=== PATIENT | male | born 1990 | race Caucasian/White ===

== ENCOUNTER 2017-05-04 16:38 | Emergency (ER) | payer OTHER ==
[~2017-05-04] VITALS: Ht 172.7 cm; Wt 81.0 kg
[~2017-05-04 16:38] MED LIST: BISA-57 PO; DIAZ-90 PO; FAMO-96 PO; HYDR-3498 PO; HYDR-762 PO; HYDR-906 PO; MAGN296S40 PO; NAPR-260 PO; ONDA4TAB35 PO; ONDA4TAB8 PO; PANT20TA2 PO; PRED20TA PO
[2017-05-04 16:47] VITALS: Ht 172.7 cm; Wt 81.0 kg
[2017-05-04] MEDS ORDERED: SOD CHLORIDE 0.9% 1,000 ML IV STA (17:54)
[2017-05-04 18:46] VITALS: TEMP 97.3
--- NOTE | 2017-05-04 18:59 | RADRPT ---
PROCEDURE: CT Brain without contrast. CLINICAL INDICATION: Syncope. Head trauma. TECHNIQUE: A CT of the brain was performed on a multidetector CT scanner utilizing axial sections from the skull base through the vertex without contrast. Images were reviewed on a high-resolution [employer] workstation. Exam CTDI = 44.95 mGy and the DLP = 720.23 mGy-cm. One or more of the following dose reduction techniques were used: Automated exposure control Adjustment of the mA and/or kV according to patient size. Use of iterative reconstruction technique. COMPARISON: Head CT 06/24/2014 FINDINGS: There is no evidence of intracranial hemorrhage, mass effect or midline shift. No abnormal intra-ax ial or extra-axial fluid collections are seen. The density of the brain is normal and the pearl/whit e matter differentiation is well preserved. The osseous structures are unremarkable. The paranasal sinuses are clear. IMPRESSION: 1. No intracranial hemorrhage, mass effect or midline shift. RPTAT: HHO .Essie Ricks MD, MD Date Time Electronically viewed and signed by .Essie Ricks MD, MD on 05/04/2017 18:58 .O/
[2017-05-04 19:07] LABS: BASOPHILS % 0.4 % (0.0-2.0); EOSINOPHILS # 0.2 10^3/ul (0.0-0.5); EOSINOPHILS % 1.4 % (0.0-7.0); HEMATOCRIT 40.5 % (42.0-52.0); HEMOGLOBIN 14.3 g/dl (14.0-18.0); LYMPHOCYTES # 1.5 10^3/ul (0.8-2.9); LYMPHOCYTES % 13.6 % (15.0-51.0); MEAN CORPUSCULAR HGB CONC 35.3 g/dl (32.0-37.0); MEAN CORPUSCULAR VOLUME 90.6 fl (82.0-101.0); MEAN PLATELET VOLUME 10.4 fl (7.4-10.4); MONOCYTE # 0.6 10^3/ul (0.3-0.9); MONOCYTES % 5.3 % (0.0-11.0); NEUTROPHIL # 8.8 10^3/ul (1.6-7.5); NEUTROPHILS % 78.9 % (39.0-77.0); PLATELET COUNT 213 10^3/UL (140-415); RED BLOOD COUNT 4.47 10^6/ul (4.70-6.10); RED CELL DISTRIBUTION WIDTH 12.6 % (11.5-14.5); WHITE BLOOD COUNT 11.2 10^3/ul (4.8-10.8)
[2017-05-04 19:20] LABS: ADD UMIC NO; UR ASCORBIC ACID NEGATIVE (NEGATIVE); UR BACTERIA FEW /HPF (NONE SEEN); UR BILIRUBIN (Dip) NEGATIVE (NEGATIVE); UR BLOOD (Dip) NEGATIVE (NEGATIVE); UR CLARITY SLIGHTLY CLOUDY (CLEAR); UR COLOR YELLOW (YELLOW); UR GLUCOSE (Dip) NEGATIVE (NEGATIVE); UR KETONES (Dip) 1+ mg/dL (NEGATIVE); UR LEUKOCYTE ESTERASE (Dip) NEGATIVE Leu/ul (NEGATIVE); UR MUCUS MODERATE /HPF (NONE SEEN); UR NITRITE (Dip) NEGATIVE (NEGATIVE); UR RBC 11 /HPF (0-5); UR TOTAL PROTEIN (Dip) NEGATIVE (NEGATIVE); UR UROBILINOGEN (Dip) 1+ mg/dL (NEGATIVE)
[2017-05-04 19:25] LABS: ANION GAP 14 (8-16); BLOOD UREA NITROGEN 9 mg/dl (7-20); CALCIUM 9.5 mg/dl (8.4-10.2); CARBON DIOXIDE 28 mmol/L (21-31); CHLORIDE 105 mmol/L (97-110); CREATININE 0.83 mg/dl (0.61-1.24); GLUCOSE 97 mg/dl (70-220); POTASSIUM 3.7 mmol/L (3.5-5.1); SODIUM 143 mmol/L (135-144)
[2017-05-04 19:26] LABS: ETHANOL < 10.0 mg/dl
--- NOTE | 2017-05-04 19:31 | ERD ---
ER Documentation Chief Complaint Date/Time DATE: 05/04/17 TIME: 18:00 Chief Complaint SYNCOPAL EPISODE AND FELL BACKWARD HIT HIS HEAD ON CONCRETE FLOOR , +KO HPI 26-year-old male ambulatory to the ED complaining of headache after syncopal episode. He was working on his car when he felt lightheaded and lost consciousness falling back and hitting the back of his head. Complains of moderate, nonradiating, occipital headache. Denies neck or back pain. No seizure activity. No intraoral injury. No visual changes, focal weakness or numbness. Denies abdominal pain, nausea vomiting. No chest pain, palpitations or shortness of breath. No fevers or chills. ROS All systems reviewed and are negative except as per history of present illness. Medications Home Meds Active Scripts Famotidine* (Pepcid*) 20 Mg Tablet, 20 MG PO BID for 14 Days, TAB Prov:FREDERIC BOYKIN DO 03/25/16 Hydrocodone/Acetaminophen ([place] 5-325 Tablet) 1 Each Tablet, 1 TAB PO Q6H Y for PAIN, #10 TAB Prov:FREDERIC BOYKIN DO 03/25/16 Ondansetron Hcl* (Zofran*) 4 Mg Tablet, 4 MG PO Q8H Y for NAUSEA AND/OR VOMITING , #10 TAB Prov:FREDERIC BOYKIN DO 03/25/16 Ondansetron Hcl* (Zofran* ODT) 4 mg -ODT Tab.disper, 4 MG PO Q6 Y for NAUSEA AND /OR VOMITING, #10 TAB Prov:ABY ARIZMENDI PA-C 12/11/15 Pantoprazole* (Protonix*) 20 Mg Tablet.dr, 20 MG PO DAILY, #20 TAB Prov:ABY ARIZMENDI PA-C 12/11/15 Naproxen* (Naprosyn*) 500 Mg Tablet, 500 MG PO BID Y for PAIN AND/OR INFLAMMATION, #30 TAB Prov:GRACIELA LOTT PA-C 10/05/15 Hydrocodone Bit-Acetaminophen* (Grant*) 5-325 Mg Tab, 1 TAB PO Q6 Y for PAIN, # 7 TAB Prov:GRACIELA LOTT PA-C 10/05/15 Magnesium Citrate* (Magnesium Citrate*) 296 Ml Solution, 296 ML PO ONCE Y for CONSTIPATION, #3 BOTTLE Prov:ARISTEO PRESTON MD 09/16/15 Bisacodyl* (Dulcolax*) 5 Mg Tablet.dr, 10 MG PO DAILY Y for CONSTIPATION, #15 TAB Prov:ARISTEO PRESTON MD 09/16/15 Diazepam* (Valium*) 5 Mg Tablet, 5 MG PO Q8, #10 TAB Prov:CASSIE DUARTE MD 09/10/15 Hydrocodone Bit-Acetaminophen* (Grant*) 10-325 Mg Tablet, 1 TAB PO Q8 Y for PAIN , #10 TAB Prov:CASSIE DUARTE MD 09/10/15 Prednisone* (Prednisone*) 20 Mg Tab, 60 MG PO DAILY for 5 Days, TAB Prov:CASSIE DUARTE MD 09/10/15 Allergies Allergies: Coded Allergies: No Known Drug Allergy (Verified Allergy, Mild, 09/12/15) PMhx/Soc Reviewed in chart. As per HPI History of Surgery: No Anesthesia Reaction: No Hx Neurological Disorder: Yes (Headaches) Hx Respiratory Disorders: No Hx Cardiac Disorders: No Hx Psychiatric Problems: No Hx Miscellaneous Medical Probl: Yes (Recurrent abdominal pain with nausea and vomiting) Hx Alcohol Use: No Hx Substance Use: No Hx Tobacco Use: No Smoking Status: Unknown if ever smoked FmHx No syncope or sudden cardiac Physical Exam Vitals Vital Signs Date Time Temp Pulse Resp B/P Pulse Ox O2 Delivery O2 Flow Rate FiO2 05/04/17 19:47 73 18 132/70 Room Air 05/04/17 18:46 97.3 66 17 125/70 100 Room Air 05/04/17 16:47 98.1 79 18 123/68 98 Physical Exam Const: Alert, anxious, no acute distress Head: Atraumatic Eyes: Normal Conjunctiva ENT: Normal External Ears, Nose and Mouth. No intraoral injury Neck: Full range of motion. No midline bony tenderness or paraspinal muscle spasm. Resp: Clear to auscultation bilaterally Cardio: Regular rate and rhythm, no murmurs, gallops or rubs. Abd: Soft, non tender, non distended. Normal bowel sounds no masses or abnormal pulsations. Skin: No petechiae or rashes Back: No midline or flank tenderness Ext: No cyanosis, or edema. No calf tenderness or swelling. Neur: Awake and alert. Cranial nerves II through XII are grossly intact. Motor and sensory equal bilaterally. No dysdiadochokinesis. No focal deficit observed. Psych: Operative. Patient appears anxious but not depressed. Result Diagram: 05/04/17 1800 05/04/17 1800 Results 24 hrs Laboratory Tests Test 05/04/17 18:00 White Blood Count 11.210^3/ul Red Blood Count 4.4710^6/ul Hemoglobin 14.3g/dl Hematocrit 40.5% Mean Corpuscular Volume 90.6fl Mean Corpuscular Hemoglobin 32.0pg Mean Corpuscular Hemoglobin Concent 35.3g/dl Red Cell Distribution Width 12.6% Platelet Count 38140^3/UL Mean Platelet Volume 10.4fl Neutrophils % 78.9% Lymphocytes % 13.6% Monocytes % 5.3% Eosinophils % 1.4% Basophils % 0.4% Nucleated Red Blood Cells % 0.0/100WBC Neutrophils # 8.810^3/ul Lymphocytes # 1.510^3/ul Monocytes # 0.610^3/ul Eosinophils # 0.210^3/ul Basophils # 0.010^3/ul Nucleated Red Blood Cells # 0.010^3/ul Urine Color YELLOW Urine Clarity SLIGHTLY CLOUDY Urine pH 8.0 Urine Specific [place] 1.020 Urine Ketones 1+mg/dL Urine Nitrite NEGATIVEmg/dL Urine Bilirubin NEGATIVEmg/dL Urine Urobilinogen 1+mg/dL Urine Leukocyte Esterase NEGATIVELeu/ul Urine Microscopic RBC 11/HPF Urine Microscopic WBC 1/HPF Urine Bacteria FEW/HPF Urine Mucus MODERATE/HPF Urine Hemoglobin NEGATIVEmg/dL Urine Glucose NEGATIVEmg/dL Urine Total Protein NEGATIVEmg/dl Sodium Level 143mmol/L Potassium Level 3.7mmol/L Chloride Level 105mmol/L Carbon Dioxide Level 28mmol/L Anion Gap 14 Blood Urea Nitrogen 9mg/dl Creatinine 0.83mg/dl Glucose Level 97mg/dl Calcium Level 9.5mg/dl Urine Opiates Screen Negative Urine Barbiturates Negative Urine Amphetamines Screen Negative Urine Benzodiazepines Screen Negative Urine Cocaine Screen Negative Urine Cannabinoids Positive Ethyl Alcohol Level < 10.0mg/dl Current Medications Medications (Trade) Dose Ordered Sig/Nicole Route PRN Reason Start Time Stop Time Status Last Admin Dose Admin Sodium Chloride (NS) 1,000 ml @ 1,000 mls/hr Q1H STAT IV 05/04/17 17:54 05/04/17 18:53 DC 05/04/17 18:01 Ketorolac Tromethamine (Toradol) 15 mg ONCE STAT IV 05/04/17 19:49 05/04/17 19:50 DC 05/04/17 20:18 EKG: Time: 19:24. Sinus rhythm. Ventricular rate 77, normal SC and QRS intervals. No acute ST segment elevation or depression. No axis deviation or ectopy. EP Impression: Normal EKG IMAGING: PROCEDURE: CT Brain without contrast. CLINICAL INDICATION: Syncope. Head trauma. TECHNIQUE: A CT of the brain was performed on a multidetector CT scanner utilizing axial sections from the skull base through the vertex without contrast. Images were reviewed on a high-resolution [employer] workstation. Exam CTDI = 44.95 mGy and the DLP = 720.23 mGy-cm. One or more of the following dose reduction techniques were used: Automated exposure control Adjustment of the mA and/or kV according to patient size. Use of iterative reconstruction technique. COMPARISON: Head CT 06/24/2014 FINDINGS: There is no evidence of intracranial hemorrhage, mass effect or midline shift. No abnormal intra-axial or extra-axial fluid collections are seen. The density of the brain is normal and the pearl/white matter differentiation is well preserved. The osseous structures are unremarkable. The paranasal sinuses are clear. IMPRESSION: 1. No intracranial hemorrhage, mass effect or midline shift. RPTAT: HHO .Essie Ricks MD, MD Date Time Electronically viewed and signed by .Essie Ricks MD, on 05/04/2017 18:58 .O/ Procedures/MDM DOCUMENTS REVIEWED: ED nurse, multiple prior ED visits and imaging studies for his complaints including abdominal pain and headache MEDICAL DECISION MAKIN-year-old male ambulatory to the ED complaining of headache after syncopal episode. He was working on his car when he felt lightheaded and lost consciousness falling back and hitting the back of his head. EKG reveals no evidence of cardiac dysrhythmia. No murmur signs of obstructive cardiomyopathy. No electrolyte abnormalities or hyponatremia. There is no evidence of seizure., Exam is benign without tenderness, rebound, guarding or signs of an acute intra-abdominal process including but not limited to abdominal aortic aneurysm. Post head injury with loss of consciousness and CT was performed to rule out subdural/epidural hematoma, mass or hydrocephalus and is negative. Pulmonary embolism is unlikely. Probable vasovagal syncope exacerbated by dehydration. Improved with intravenous hydration. Stable for discharge of precautionary instructions and outpatient follow-up as counseled. Counseled patient regarding diagnostic workup, diagnosis and need for followup. Understands to return to ED if symptoms recur, worsen or any other concerns. Departure Diagnosis: Primary Impression: Syncope Syncope type: unspecified Qualified Code: R55 - Syncope, unspecified syncope type Condition: Stable (Improved) ELADIA MCCANN MD May 04, 2017 19:31
[2017-05-04 19:45] LABS: COCAINE Negative (NEGATIVE)
[2017-05-04 19:46] LABS: BARBITURATES Negative (NEGATIVE); BENZODIAZEPINES Negative (NEGATIVE); CANNABINOIDS Positive (NEGATIVE); OPIATES Negative (NEGATIVE)
[2017-05-04 19:47] VITALS: BP 132/70; PULSE 73; RESP 18
[2017-05-04] MEDS ORDERED: KETOROLAC 15 MG INJ IV STA (19:49)
== END 2017-05-04 20:22 | disposition home or self-care (01) ==
LOC: E/R 16:38
DX: R55 Syncope and collapse (principal)
CPT/HCPCS: 70450; 80048; 80306; 80307; 81001; 85025; 96374; J1885; J7030; Z7502; 81003

== ENCOUNTER 2017-09-27 16:19 | Observation (INO) | END 2017-09-28 12:45 | disposition home or self-care (01) ==

== ENCOUNTER 2017-09-28 20:38 | Emergency (ER) | END 2017-09-29 06:40 | disposition home or self-care (01) ==

== ENCOUNTER 2017-10-12 13:54 | Emergency (ER) | END 2017-10-12 17:31 | disposition home or self-care (01) ==

== ENCOUNTER 2017-11-02 00:41 | Emergency (ER) | END 2017-11-02 04:46 | disposition home or self-care (01) ==

== ENCOUNTER 2017-12-21 16:28 | Emergency (ER) | END 2017-12-21 18:00 | disposition home or self-care (01) ==

== ENCOUNTER 2017-12-23 00:26 | Emergency (ER) | END 2017-12-23 06:04 | disposition home or self-care (01) ==

== ENCOUNTER 2017-12-23 12:26 | Emergency (ER) | END 2017-12-23 22:58 | disposition short-term general hospital (02) ==

== ENCOUNTER 2017-12-31 09:50 | Emergency (ER) | END 2017-12-31 13:14 | disposition home or self-care (01) ==

== ENCOUNTER 2018-02-01 09:24 | Emergency (ER) | END 2018-02-01 11:39 | disposition home or self-care (01) ==

== ENCOUNTER 2018-02-28 03:11 | Emergency (ER) | END 2018-02-28 07:44 | disposition home or self-care (01) ==

== ENCOUNTER 2018-03-03 08:48 | Emergency (ER) | END 2018-03-03 11:31 | disposition home or self-care (01) ==

== ENCOUNTER 2018-03-09 00:09 | Emergency (ER) | END 2018-03-09 03:15 | disposition home or self-care (01) ==

== ENCOUNTER 2018-03-12 00:41 | Emergency (ER) | END 2018-03-12 03:24 | disposition home or self-care (01) ==

== ENCOUNTER 2018-03-19 08:21 | Emergency (ER) | END 2018-03-19 10:26 | disposition home or self-care (01) ==

== ENCOUNTER 2018-03-19 12:14 | Emergency (ER) | END 2018-03-19 15:01 | disposition home or self-care (01) ==

== ENCOUNTER 2018-04-12 07:49 | Emergency (ER) | END 2018-04-12 10:56 | disposition home or self-care (01) ==

== ENCOUNTER 2018-04-14 06:59 | Emergency (ER) | END 2018-04-14 09:42 | disposition home or self-care (01) ==

== ENCOUNTER 2018-04-19 14:48 | Emergency (ER) | END 2018-04-19 18:15 | disposition left against medical advice (07) ==

== ENCOUNTER 2018-04-19 19:53 | Emergency (ER) | END 2018-04-20 01:38 | disposition home or self-care (01) ==

== ENCOUNTER 2018-05-10 20:21 | Emergency (ER) | END 2018-05-11 04:30 | disposition home or self-care (01) ==

== ENCOUNTER 2018-06-21 16:39 | Emergency (ER) | END 2018-06-21 18:50 | disposition home or self-care (01) ==

== ENCOUNTER 2018-06-26 13:19 | Emergency (ER) | END 2018-06-26 14:45 | disposition home or self-care (01) ==

== ENCOUNTER 2018-07-11 05:07 | Emergency (ER) | END 2018-07-11 08:45 | disposition home or self-care (01) ==

== ENCOUNTER 2018-09-15 10:14 | Emergency (ER) | payer SELFPAY ==
[~2018-09-15] VITALS: Ht 170.2 cm; Wt 80.1 kg
[~2018-09-15 10:14] MED LIST changes: -BISA-57 PO; -DIAZ-90 PO; +DICY10CA40 PO; -FAMO-96 PO; -HYDR-3498 PO; +HYDR-3980 PO; -HYDR-762 PO; -HYDR-906 PO; +IBUP-1542 PO; -MAGN296S40 PO; -NAPR-260 PO; -ONDA4TAB35 PO; -ONDA4TAB8 PO; -PANT20TA2 PO; -PRED20TA PO; +ZOF8 PO
[2018-09-15 10:35] VITALS: RESP 18; Ht 170.2 cm; Wt 80.1 kg
[2018-09-15] MEDS ORDERED: HYDROCODONE/APAP (10/325) TAB PO ONE (11:30)
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
[2018-09-15] MEDS ORDERED: IBUP-1542 PO (13:53)
[2018-09-15 14:07] VITALS: BP 129/69; PULSE 71
== END 2018-09-15 14:10 | disposition home or self-care (01) ==
LOC: FTE 10:14
DX: S16.1XXA Strain of muscle, fascia and tendon at neck level, initial encounter (principal); S20.219A Contusion of unspecified front wall of thorax, initial encounter; S69.91XA Unspecified injury of right wrist, hand and finger(s), initial encounter; S39.92XA Unspecified injury of lower back, initial encounter; F17.210 Nicotine dependence, cigarettes, uncomplicated; V13.0XXA Pedal cycle driver injured in collision with car, pick-up truck or van in nontraffic accident, initial encounter
CPT/HCPCS: 71110; 72040; 72100; 73562

== ENCOUNTER 2018-09-26 00:29 | Emergency (ER) | payer SELFPAY ==
[~2018-09-26] VITALS: Ht 170.2 cm; Wt 79.6 kg
[2018-09-26 00:32] VITALS: Ht 170.2 cm; Wt 79.6 kg
--- NOTE | 2018-09-26 03:33 | ERD ---
ER Documentation Chief Complaint Chief Complaint c/o frontal headache +pressure to eyes. +nausea since 2pm yesterday HPI There is a 28-year-old male presents to emergency department with complaints of headache. History of migraine. Denies the worst headache of his life, head injury, loss of consciousness, dizziness, neck pain, neck stiffness, throat pain, difficulty swallowing, difficulty breathing lying flat, shoulder pain, chest pain, back pain, abdominal pain, nausea, vomiting, constipation, diarrhea, urinary symptoms, loss of bowel and bladder control, trauma, injury, falls, difficulty walking due to pain, numbness or tingling sensation, calf pain, recent travel, recent major surgery in the last 3 weeks, calf pain, recent long travel, recent exposure to any illness, recent antibiotic use in the last 3 months, fever, chills, seizures. Past medical history: Surgical history: Social: Denies smoking, use of alcoholic beverages, use of illegal drugs. ROS All systems reviewed and are negative except as per history of present illness. Medications Home Meds Active Scripts Metoclopramide* (Reglan*) 10 Mg Tablet, 10 MG PO Q6 PRN for NAUSEA AND/OR VOMITING, #20 TAB Prov:PASILABAN,KLAR F 09/26/18 Ibuprofen* (Motrin*) 800 Mg Tab, 800 MG PO Q6H PRN for PAIN AND OR ELEVATED TEMP, #30 TAB Prov:PASILABAN,KLAR F 09/26/18 Diphenhydramine Hcl* (Benadryl*) 25 Mg Cap, 25 MG PO Q6 PRN for ITCHING/RASH, #30 TAB Prov:PASILABAN,KLAR F 09/26/18 Meclizine Hcl* (Antivert*) 12.5 Mg Tab, 12.5 MG PO Q6H PRN for DIZZINESS, #20 TAB Prov:PASILABAN,KLAR F 09/26/18 Ibuprofen* (Motrin*) 600 Mg Tab, 600 MG PO Q6, #30 TAB Prov:LATRICIA MCCLAIN PA-C 09/15/18 Ondansetron Hcl* (Zofran*) 8 Mg Tab, 8 MG PO Q6H PRN for NAUSEA AND OR VOMITING, #20 TAB Prov:NAYA SHOEMAKER MD 07/11/18 Dicyclomine HCl (Dicyclomine HCl) 10 Mg Capsule, 10 MG PO TID PRN for ABDOMINAL CRAMPING, #20 CAP Prov:NAYA SHOEMAKER MD 07/11/18 Reported Medications Hydrocodone/Acetaminophen ([place] 10-325 Tablet) 1 Each Tablet, 1 EACH PO Q6 PRN for SEVERE PAIN LEVEL 7-10, TAB 03/03/18 Ibuprofen* (Ibuprofen*) 600 Mg Tablet, 600 MG PO Q6H PRN for PAIN AND/OR INFLAMMATION, TAB 03/03/18 Allergies Allergies: Coded Allergies: No Known Drug Allergy (Verified Allergy, Mild, 09/15/18) PMhx/Soc History of Surgery: No Anesthesia Reaction: No Hx Neurological Disorder: Yes (Herniated Disc) Hx Respiratory Disorders: No Hx Cardiac Disorders: No Hx Psychiatric Problems: No Hx Miscellaneous Medical Probl: No Hx Alcohol Use: Yes (social) Hx Substance Use: Yes (Marijuana) Hx Tobacco Use: Yes Smoking Status: Current every day smoker Physical Exam Vitals Physical Exam Const: No acute distress Head: Atraumatic Eyes: Normal Conjunctiva. There is no visual field loss. There is mild sensitivity to light. ENT: Normal External Ears, Nose and Mouth. Neck: Full range of motion. No meningismus. Resp: Clear to auscultation bilaterally Cardio: Regular rate and rhythm, no murmurs Abd: Soft, non tender, non distended. Normal bowel sounds Skin: No petechiae or rashes Back: No midline or flank tenderness Ext: No cyanosis, or edema Neur: Awake and alert. No obvious facial droop. Romberg test is negative. No neurological deficits. Ambulatory with steady gait. Psych: Normal Mood and Affect Results 24 hrs Current Medications Medications Dose Sig/Nicole Start Time Status Last (Trade) Ordered Route PRN Stop Time Admin Dose Reason Admin Sodium 1,000 ml @ Q1H ONCE 09/26/18 DC 09/26/18 Chloride 1,000 mls/hr IV 04:00 09/26/18 04:41 04:59 10 mg ONCE ONCE 09/26/18 DC 09/26/18 Metoclopramid IV 04:00 09/26/18 04:41 e HCl 04:01 (Reglan) 25 mg ONCE ONCE 09/26/18 DC 09/26/18 Diphenhydrami IV 04:00 09/26/18 04:41 ne HCl 04:01 (Benadryl) Meclizine 25 mg ONCE ONCE 09/26/18 DC 09/26/18 HCl PO 05:00 09/26/18 05:03 (Antivert) 05:01 Ondansetron 4 mg ONCE STAT 09/26/18 DC 09/26/18 HCl (Zofran ODT 04:55 09/26/18 05:02 Odt) 04:56 Lorazepam 1 mg ONCE ONCE 09/26/18 DC 09/26/18 (Ativan) IV 05:00 09/26/18 05:02 05:01 Procedures/MDM Diagnostic tests: Clinical exam. Treatment: Saline lock. Normal saline IV bolus. Benadryl IV. Reglan IV. Antivert. Ativan. Re-evaluation: Romberg test is negative. No neurological deficit. Patient stated that he feels much better at this time and that he is ready to go home. Differential diagnosis I have low suspicion for subarachnoid hemorrhage, stroke, sepsis, meningitis, epidural hematoma, subdural hematoma. Final diagnosis: Headache. Migraine. Prescription: Motrin. Reglan. Benadryl. Antivert. Follow-up with PCP in the next 24-48 hours. PCP to refer patient to neurologist if symptoms persist. Come back here in the emergency department for any new symptoms or any worsening symptoms. All questions and concerns were answered. Patient and family members verbalized understanding and agreed with plan of care. Hemodynamically stable on discharge. Departure Diagnosis: Primary Impression: Headache Additional Impression: Migraine Condition: Stable Additional Instructions: Follow-up with PCP in the next 24-48 hours. PCP to refer patient to neurologist if symptoms persist. Come back here in the emergency department for any new symptoms or any worsening symptoms. ASHA LÓPEZ Sep 26, 2018 03:33
[2018-09-26] MEDS ORDERED: DIPHENHYDRAMINE 50 MG INJ IV ONE (04:00)
[2018-09-26] MEDS ORDERED: METOCLOPRAMIDE 10 MG INJ IV ONE (04:00)
[2018-09-26] MEDS ORDERED: SOD CHLORIDE 0.9% 1,000 ML IV ONE (04:00)
[2018-09-26] MEDS ORDERED: ONDANSETRON (ODT) 4 MG TAB ODT STA (04:55)
[2018-09-26] MEDS ORDERED: LORAZEPAM 2 MG INJ IV ONE (05:00)
[2018-09-26] MEDS ORDERED: MECLIZINE 12.5 MG TAB PO ONE (05:00)
[2018-09-26] MEDS ORDERED: IBUP800T48 PO (05:51)
[2018-09-26] MEDS ORDERED: BEN25 PO (05:51)
[2018-09-26] MEDS ORDERED: MECL12.574 PO (05:51)
[2018-09-26] MEDS ORDERED: METO10TA92 PO (05:52)
[2018-09-26 06:17] VITALS: BP 129/78; PULSE 80; RESP 16
== END 2018-09-26 06:18 | disposition home or self-care (01) ==
LOC: FTE 00:29
DX: G43.909 Migraine, unspecified, not intractable, without status migrainosus (principal); F17.210 Nicotine dependence, cigarettes, uncomplicated
CPT/HCPCS: 96374; 96375; 99284; J1200; J2060; J2765; J7030

== ENCOUNTER 2018-11-25 17:44 | Emergency (ER) | payer MEDICAID ==
[~2018-11-25] VITALS: Ht 170.2 cm; Wt 77.8 kg
[~2018-11-25 17:44] MED LIST changes: +BEN25 PO; +IBUP800T48 PO; +MECL12.574 PO; +METO10TA92 PO
[2018-11-25 17:52] VITALS: Ht 170.2 cm; Wt 77.8 kg
[2018-11-25] MEDS ORDERED: IBUPROFEN 800 MG TAB PO ONE (18:30)
[2018-11-25] MEDS ORDERED: LORAZEPAM 1 MG TAB PO ONE (18:30)
[2018-11-25] MEDS ORDERED: IBUP-1542 PO (19:04)
--- NOTE | 2018-11-25 19:12 | ERD ---
ER Documentation Chief Complaint Chief Complaint mid chest pain started at work today; vomited at work HPI Patient is a 28-year-old male with no medical problems presents with chest pain. The symptoms started yesterday. He was vomiting. He feels pressure in his chest. The pain has been constant. He has had no treatment as of yet. He reports a cough as well. Upon review of old medical records the patient has multiple visits for various complaints. Review of the emergency department information exchange system shows visits to 3 separate emergency departments for a total of 29 visits over the past 1 year. ROS All systems reviewed and are negative except as per history of present illness. Medications Home Meds Active Scripts Ibuprofen* (Motrin*) 600 Mg Tab, 600 MG PO Q6H PRN for PAIN AND OR ELEVATED TEMP, #30 TAB Prov:KELLY POWELL MD 11/25/18 Metoclopramide* (Reglan*) 10 Mg Tablet, 10 MG PO Q6 PRN for NAUSEA AND/OR VOMITING, #20 TAB Prov:PASILAASHA STRICKLAND 09/26/18 Ibuprofen* (Motrin*) 800 Mg Tab, 800 MG PO Q6H PRN for PAIN AND OR ELEVATED TEMP, #30 TAB Prov:PASILAASHA STRICKLAND F 09/26/18 Diphenhydramine Hcl* (Benadryl*) 25 Mg Cap, 25 MG PO Q6 PRN for ITCHING/RASH, #30 TAB Prov:PASILAASHA STRICKLAND F 09/26/18 Meclizine Hcl* (Antivert*) 12.5 Mg Tab, 12.5 MG PO Q6H PRN for DIZZINESS, #20 TAB Prov:PASASHA PEARCE F 09/26/18 Ibuprofen* (Motrin*) 600 Mg Tab, 600 MG PO Q6, #30 TAB Prov:LATRICIA MCCLAIN PA-C 09/15/18 Ondansetron Hcl* (Zofran*) 8 Mg Tab, 8 MG PO Q6H PRN for NAUSEA AND OR VOMITING, #20 TAB Prov:NAYA SHOEMAKER MD 07/11/18 Dicyclomine HCl (Dicyclomine HCl) 10 Mg Capsule, 10 MG PO TID PRN for ABDOMINAL CRAMPING, #20 CAP Prov:NAYA SHOEMAKER MD 07/11/18 Reported Medications Hydrocodone/Acetaminophen ([place] 10-325 Tablet) 1 Each Tablet, 1 EACH PO Q6 PRN for SEVERE PAIN LEVEL 7-10, TAB 03/03/18 Ibuprofen* (Ibuprofen*) 600 Mg Tablet, 600 MG PO Q6H PRN for PAIN AND/OR INFLAMMATION, TAB 03/03/18 Allergies Allergies: Coded Allergies: No Known Drug Allergy (Verified Allergy, Mild, 09/15/18) PMhx/Soc History of Surgery: No Anesthesia Reaction: No Hx Neurological Disorder: Yes (Herniated Disc) Hx Respiratory Disorders: No Hx Cardiac Disorders: No Hx Psychiatric Problems: No Hx Miscellaneous Medical Probl: No Hx Alcohol Use: Yes (social) Hx Substance Use: Yes (Marijuana) Hx Tobacco Use: Yes Smoking Status: Current every day smoker FmHx Family History: diabetes Physical Exam Vitals Vital Signs Date Temp Pulse Resp B/P (MAP) Pulse Ox O2 O2 Flow FiO2 Time Delivery Rate 11/25/18 98.2 100 20 144/63 100 17:52 (90) Physical Exam Const: Mild distress Head: Atraumatic Eyes: Normal Conjunctiva ENT: Normal External Ears, Nose and Mouth. Neck: Full range of motion. No meningismus. Resp: Clear to auscultation bilaterally Cardio: Tachycardic rate without murmur Abd: Soft, non tender, non distended. Normal bowel sounds Skin: No petechiae or rashes Back: No midline or flank tenderness Ext: No cyanosis, or edema Neur: Awake and alert Psych: Normal Mood and Affect Results 24 hrs Current Medications Medications Dose Sig/Nicole Start Time Status Last (Trade) Ordered Route PRN Stop Time Admin Dose Reason Admin Lorazepam 1 mg ONCE ONCE 11/25/18 DC 11/25/18 (Ativan) PO 18:30 11/25/18 18:47 18:31 Ibuprofen 800 mg ONCE ONCE 11/25/18 DC 11/25/18 (Motrin) PO 18:30 11/25/18 18:47 18:31 Procedures/MDM EKG read by me: Rate/Rhythm: Tachycardia at a rate of 125 Intervals: Normal Impression: Sinus tachycardia without ischemia Chest X-ray 1V Interpreted by me: Soft Tissue: No acute abnormalities Bones: No acute abnormalities Mediastinum/Cardiac Silhouette/Lungs: No acute abnormalities Patient is a 28-year-old male who presents with chest pain. EKG shows sinus tachycardia but no ischemia. Chest x-ray was negative. At this point I doubt acute coronary syndrome, pneumonia, pneumothorax, pulmonary embolism, or aortic dissection. The patient was given Ativan and ibuprofen and feels better. The patient went to follow-up closely with his primary doctor within 24 to 48 hours for reevaluation. He can return sooner for any worsening symptoms. The patient understands the plan and is okay for discharge at this time. Departure Diagnosis: Primary Impression: Chest pain Chest pain type: unspecified Qualified Codes: R07.9 - Chest pain, unspecified Condition: Fair Patient Instructions: Chest Pain, Uncertain Cause Referrals: Dr. Roman Additional Instructions: Call your primary care doctor TOMORROW for an appointment during the next 1-2 days.See the doctor sooner or return here if your condition worsens before your appointment time. KELLY POWELL MD November 25, 2018 19:12
[2018-11-25 19:15] VITALS: BP 139/62; PULSE 88; RESP 18
== END 2018-11-25 18:15 | disposition home or self-care (01) ==
LOC: E/R 17:44
DX: R07.9 Chest pain, unspecified (principal); F17.210 Nicotine dependence, cigarettes, uncomplicated
CPT/HCPCS: 71045; 93005; Z7502; Z7610

== ENCOUNTER 2019-01-08 09:21 | Emergency (ER) | payer MEDICAID, OTHER ==
[~2019-01-08] VITALS: Ht 170.2 cm; Wt 79.3 kg
[2019-01-08 09:53] VITALS: BP 134/79; PULSE 83; RESP 16; Ht 170.2 cm; Wt 79.3 kg
[2019-01-08] MEDS ORDERED: KETOROLAC 60 MG INJ IM STA (10:18)
[2019-01-08] MEDS ORDERED: CYCLOBENZAPRINE 10 MG TAB PO ONE (10:30)
[2019-01-08] MEDS ORDERED: CYCL10TA7 PO (10:39)
[2019-01-08] MEDS ORDERED: IBUP-1542 PO (10:39)
--- NOTE | 2019-01-08 11:07 | ERD ---
ER Documentation Chief Complaint Chief Complaint NON TRAUMATIC NECK PAIN & LOWER BACK PAIN HPI 28 states that he has been here several times for the same as [id number] male with history of chronic back and neck pain presents with complaint of neck and back pain. States that he has herniated disc. States that he was at work when he felt the pain. Denies any trauma to the back. He gets prescribed a muscle relaxant which works to alleviate his symptoms. States that his current taking ibuprofen for the pain. Also says he wants a work note. Patient is ambulatory. Denies chest pain, SOB, flank pain, dsyuria, hematuria, saddle numbness, incontinence, pain worse at night or when supine, weight loss, night sweats, fatigue, focal neurological defecits, recent bacterial infection, IV drug use, or immunosuppression. Denies past medical history. Denies allergies. Denies surgeries. Denies ETOH, drug, or tobacco use. ROS All systems reviewed and are negative except as per history of present illness. Medications Home Meds Active Scripts Cyclobenzaprine Hcl* (Cyclobenzaprine Hcl*) 10 Mg Tablet, 10 MG PO TID, #15 TAB Prov:LEA DUNN 01/08/19 Ibuprofen* (Motrin*) 600 Mg Tab, 600 MG PO Q6, #30 TAB Prov:LEA DUNN 01/08/19 Ibuprofen* (Motrin*) 600 Mg Tab, 600 MG PO Q6H PRN for PAIN AND OR ELEVATED TEMP, #30 TAB Prov:KELLY POWELL MD 11/25/18 Metoclopramide* (Reglan*) 10 Mg Tablet, 10 MG PO Q6 PRN for NAUSEA AND/OR VOMITING, #20 TAB Prov:ASHA LÓPEZ F 09/26/18 Ibuprofen* (Motrin*) 800 Mg Tab, 800 MG PO Q6H PRN for PAIN AND OR ELEVATED TEMP, #30 TAB Prov:EDWINILAASHA STRICKLAND F 09/26/18 Diphenhydramine Hcl* (Benadryl*) 25 Mg Cap, 25 MG PO Q6 PRN for ITCHING/RASH, #30 TAB Prov:ASHA LÓPEZ F 09/26/18 Meclizine Hcl* (Antivert*) 12.5 Mg Tab, 12.5 MG PO Q6H PRN for DIZZINESS, #20 TAB Prov:PASILAEMKLAR F 09/26/18 Ibuprofen* (Motrin*) 600 Mg Tab, 600 MG PO Q6, #30 TAB Prov:LATRICIA MCCLAIN PA-C 09/15/18 Ondansetron Hcl* (Zofran*) 8 Mg Tab, 8 MG PO Q6H PRN for NAUSEA AND OR VOMITING, #20 TAB Prov:NAYA SHOEMAKER MD 07/11/18 Dicyclomine HCl (Dicyclomine HCl) 10 Mg Capsule, 10 MG PO TID PRN for ABDOMINAL CRAMPING, #20 CAP Prov:NAYA SHOEMAKER MD 07/11/18 Reported Medications Hydrocodone/Acetaminophen ([place] 10-325 Tablet) 1 Each Tablet, 1 EACH PO Q6 PRN for SEVERE PAIN LEVEL 7-10, TAB 03/03/18 Ibuprofen* (Ibuprofen*) 600 Mg Tablet, 600 MG PO Q6H PRN for PAIN AND/OR INFLAMMATION, TAB 03/03/18 Allergies Allergies: Coded Allergies: No Known Drug Allergy (Verified Allergy, Mild, 09/15/18) PMhx/Soc Medical and Surgical Hx: pt denies Surgical Hx History of Surgery: No Anesthesia Reaction: No Hx Neurological Disorder: Yes (Herniated Disc) Hx Respiratory Disorders: No Hx Cardiac Disorders: No Hx Psychiatric Problems: No Hx Miscellaneous Medical Probl: No Hx Alcohol Use: Yes (social) Hx Substance Use: Yes (Marijuana) Hx Tobacco Use: Yes Smoking Status: Current every day smoker FmHx Family History: No diabetes, No coronary disease, No other Physical Exam Vitals Vital Signs Date Temp Pulse Resp B/P (MAP) Pulse Ox O2 O2 Flow FiO2 Time Delivery Rate 01/08/19 97.9 83 16 134/79 100 09:53 (97) Physical Exam Const: No acute distress Head: Atraumatic Eyes: Normal Conjunctiva ENT: Normal External Ears, Nose and Mouth. Th Neck: Full range of motion. No meningismus. Resp: Clear to auscultation bilaterally Cardio: Regular rate and rhythm, no murmurs Abd: Soft, non tender, non distended. Normal bowel sounds Skin: No rashes or erythema. Back: No midline or flank tenderness. Full range of motion. No saddle numb ness. 5 out of 5 strength in lower extremities. Distal sensation pulses intact. Ext: No cyanosis, or edema. Neur: Awake and alert Psych: Normal Mood and Affect Results 24 hrs Current Medications Medications Dose Sig/Nicole Start Time Status Last (Trade) Ordered Route PRN Stop Time Admin Dose Reason Admin Ketorolac 60 mg ONCE STAT 01/08/19 DC 01/08/19 Tromethamine IM 10:18 10:26 (Toradol) 01/08/19 10:19 10 mg ONCE ONCE 01/08/19 DC 01/08/19 Cyclobenzapri PO 10:30 10:27 ne HCl 01/08/19 10:31 (Flexeril) Procedures/MDM MDM: Patient's presentation consistent with chronic back pain. Patient was given muscle relaxant as well as Toradol shot in the ER and discharged with ibuprofen and muscle relaxant. I have low suspicion for epidural abscess, cauda equina, abdominal aortic aneurysm, pyelonephritis, aortic dissection, spinal fracture, or other emergent conditions based on patient history and exam findings. Patient told if they experience leg weakness or numbness, or incontinence they need to return to the ER immediately. Patient discharged with strict ER precautions. Patient advised to follow up with PMD. All questions answered at discharge. Departure Diagnosis: Primary Impression: Neck pain Additional Impression: Back pain Condition: Stable Patient Instructions: Back Pain (Acute Or Chronic), Neck Pain, No Trauma Referrals: [facility] YOU HAVE RECEIVED A MEDICAL SCREENING EXAM AND THE RESULTS INDICATE THAT YOU DO NOT HAVE A CONDITION THAT REQUIRES URGENT TREATMENT IN THE EMERGENCY DEPARTMENT. FURTHER EVALUATION AND TREATMENT OF YOUR CONDITION CAN WAIT UNTIL YOU ARE SEEN IN YOUR DOCTORS OFFICE WITHIN THE NEXT 1-2 DAYS. IT IS YOUR RESPONSIBILITY TO MAKE AN APPOINTMENT FOR FOLOW-UP CARE. IF YOU HAVE A PRIMARY DOCTOR --you should call your primary doctor and schedule an appointment IF YOU DO NOT HAVE A PRIMARY DOCTOR YOU CAN CALL OUR PHYSICIAN REFERRAL HOTLINE AT IF YOU CAN NOT AFFORD TO SEE A PHYSICIAN YOU CAN CHOSE FROM THE FOLLOWING [facility] [address] [facility] [address] [facility] [address] [facility] [address] [facility] [address] [facility] [address] Additional Instructions: FOLLOW UP WITH YOUR PRIMARY CARE PHYSICIAN TOMORROW.Return to this facility if you are not improving as expected. LEA DUNN Jan 08, 2019 11:06
== END 2019-01-08 11:10 | disposition home or self-care (01) ==
LOC: FTE 09:21
DX: M54.2 Cervicalgia (principal); M54.5 Low back pain; F17.210 Nicotine dependence, cigarettes, uncomplicated
CPT/HCPCS: 96372; J1885; Z7502; Z7610

== ENCOUNTER 2019-01-15 13:53 | Emergency (ER) | payer OTHER ==
[~2019-01-15] VITALS: Ht 172.7 cm; Wt 80.2 kg
[~2019-01-15 13:53] MED LIST changes: +CYCL10TA7 PO
[2019-01-15 13:56] VITALS: BP 134/76; PULSE 92; RESP 16; Ht 172.7 cm; Wt 80.2 kg
[2019-01-15] MEDS ORDERED: KETOROLAC 60 MG INJ IM STA (14:41)
--- NOTE | 2019-01-15 14:49 | ERD ---
ER Documentation Chief Complaint Chief Complaint pt reports low back pain x 1 week and cough x 2 days HPI Patient is a 28 years old male with PMHx of herniated disc presenting to the clinic for cough, dark sputum production, chest pain, difficulty breathing, chills, night sweats, nasal congestion, coryza since yesterday. Patient reports of persistent low back pain since last visit on 01/08/2019. Patient reports taking Flexeril and Ibuprofen without resolution of symptoms. Patient denies nausea, emesis, dizziness, abdominal pain, hematochezia, melena. Patient denies saddle anesthesia or urinary/fecal incontinence. ROS All systems reviewed and are negative except as per history of present illness. Medications Home Meds Active Scripts Menthol (HALLS) 7.6 Mg Lozenge, 7.6 MG MM TID for 7 Days, LOZENGE Prov:LUIS ASKEW PA-C 01/15/19 Orlubaroasv-Y-Heaxnqpssa Hb* (Guaifenesin* DM Syrup) 120 Ml Syrup, 10 ML PO Q4H PRN for COUGH for 7 Days, #120 ML Prov:LUIS ASKEW PA-C 01/15/19 Cyclobenzaprine Hcl* (Cyclobenzaprine Hcl*) 10 Mg Tablet, 10 MG PO TID, #15 TAB Prov:LEA DUNN 01/08/19 Ibuprofen* (Motrin*) 600 Mg Tab, 600 MG PO Q6, #30 TAB Prov:LEA DUNN 01/08/19 Ibuprofen* (Motrin*) 600 Mg Tab, 600 MG PO Q6H PRN for PAIN AND OR ELEVATED TEMP, #30 TAB Prov:KELLY POWELL MD 11/25/18 Metoclopramide* (Reglan*) 10 Mg Tablet, 10 MG PO Q6 PRN for NAUSEA AND/OR VOMITING, #20 TAB Prov:PASILAASHA STRICKLAND 09/26/18 Ibuprofen* (Motrin*) 800 Mg Tab, 800 MG PO Q6H PRN for PAIN AND OR ELEVATED TEMP, #30 TAB Prov:ASHA LÓPEZ 09/26/18 Diphenhydramine Hcl* (Benadryl*) 25 Mg Cap, 25 MG PO Q6 PRN for ITCHING/RASH, #30 TAB Prov:ASHA LÓPEZ 09/26/18 Meclizine Hcl* (Antivert*) 12.5 Mg Tab, 12.5 MG PO Q6H PRN for DIZZINESS, #20 TAB Prov:ASHA LÓPEZ 09/26/18 Ibuprofen* (Motrin*) 600 Mg Tab, 600 MG PO Q6, #30 TAB Prov:LATRICIA MCCLAIN PA-C 09/15/18 Ondansetron Hcl* (Zofran*) 8 Mg Tab, 8 MG PO Q6H PRN for NAUSEA AND OR VOMITING, #20 TAB Prov:NAYA SHOEMAKER MD 07/11/18 Dicyclomine HCl (Dicyclomine HCl) 10 Mg Capsule, 10 MG PO TID PRN for ABDOMINAL CRAMPING, #20 CAP Prov:NAYA SHOEMAKER MD 07/11/18 Reported Medications Hydrocodone/Acetaminophen ([place] 10-325 Tablet) 1 Each Tablet, 1 EACH PO Q6 PRN for SEVERE PAIN LEVEL 7-10, TAB 03/03/18 Ibuprofen* (Ibuprofen*) 600 Mg Tablet, 600 MG PO Q6H PRN for PAIN AND/OR INFLAMMATION, TAB 03/03/18 Allergies Allergies: Coded Allergies: No Known Drug Allergy (Verified Allergy, Mild, 09/15/18) PMhx/Soc History of Surgery: No Anesthesia Reaction: No Hx Neurological Disorder: Yes (Herniated Disc) Hx Respiratory Disorders: No Hx Cardiac Disorders: No Hx Psychiatric Problems: No Hx Miscellaneous Medical Probl: No Hx Alcohol Use: Yes (social) Hx Substance Use: Yes (Marijuana) Hx Tobacco Use: Yes FmHx Family History: No diabetes, No coronary disease, No other Physical Exam Vitals Vital Signs Date Temp Pulse Resp B/P (MAP) Pulse Ox O2 O2 Flow FiO2 Time Delivery Rate 01/15/19 98.8 92 16 134/76 100 13:56 (95) Physical Exam Const: No acute distress Head: Atraumatic Eyes: Normal Conjunctiva. ENT: Normal External Ears, Nose and Mouth. Mild oropharyngeal erythema. Neck: Full range of motion. No meningismus. Resp: Clear to auscultation bilaterally Cardio: Regular rate and rhythm, no murmurs Back: Low back tenderness. No gross trauma. Ext: No cyanosis, or edema Neur: Awake and alert Psych: Normal Mood and Affect Results 24 hrs Current Medications Medications Dose Sig/Nicole Start Time Status Last (Trade) Ordered Route PRN Stop Time Admin Dose Reason Admin Ketorolac 60 mg ONCE STAT 01/15/19 DC 01/15/19 Tromethamine IM 14:41 15:02 (Toradol) 01/15/19 14:42 10 mg ONCE ONCE 01/15/19 DC 01/15/19 Dexamethasone IM 15:00 15:02 (Decadron) 01/15/19 15:01 Procedures/MDM Patient was seen and evaluated for cough and low back pain. EKG showed NSR without ST elevation or signs of ischemia. Patient was given Toradol 60mg IM and Dexamethasone 10m IM. Low suspicion for pneumonia due to an unremarkable pulmonary exam. Low suspicion for cauda equina syndrome. Patient is stable and ready for discharge. F/U with PCP. Continue taking Ibuprofen and Flexeril. Patient will be discharged with guaifenesin DM and lozenges. Departure Diagnosis: Primary Impression: Cough Condition: Stable Patient Instructions: Cough, Chronic, Uncertain Cause, (Adult) Referrals: [facility] Additional Instructions: Patient advised to return to the ED immediately for new or worsening symptoms. Patient advised to follow up with primary care provider in the next 24-48 hours. Patient verbalized understanding and agrees with treatment plan and course of action. If patient has no primary care they may follow up with [facility] [address] [place] [id number] or [facility] [address] [place] [address] or [facility] [address] [place] [address] LUIS ASKEW PA-C Jan 15, 2019 14:49
[2019-01-15] MEDS ORDERED: MENT7.6L MM (14:51)
[2019-01-15] MEDS ORDERED: GUAI120S25 PO (14:51)
[2019-01-15] MEDS ORDERED: DEXAMETHASONE 10 MG/ML 1 ML INJ IM ONE (15:00)
== END 2019-01-15 16:11 | disposition home or self-care (01) ==
LOC: FTE 13:53
DX: R05 Cough (principal); M54.5 Low back pain; Z87.891 Personal history of nicotine dependence
CPT/HCPCS: 93005; 96372; J1100; J1885; Z7502

== ENCOUNTER 2019-01-18 05:54 | Emergency (ER) | payer OTHER ==
[~2019-01-18] VITALS: Ht 170.2 cm; Wt 83.7 kg
[~2019-01-18 05:54] MED LIST changes: +GUAI120S25 PO; +MENT7.6L MM
[2019-01-18 05:59] VITALS: BP 131/79; PULSE 79; RESP 18; Ht 170.2 cm; Wt 83.7 kg
[2019-01-18] MEDS ORDERED: HYDROCODONE/APAP (5/325) TAB PO ONE (07:00)
[2019-01-18] MEDS ORDERED: IBUP800T48 PO (07:40)
--- NOTE | 2019-01-18 07:42 | ERD ---
ER Documentation Chief Complaint Chief Complaint LEFT ARM PAIN FROM HAND TO ELBOW, S/P WORK INJURY HPI 28-year-old male presents to the ED complaining of an injury to his left hand and wrist. He states that 2:30 in the morning he was at work and his finger got stuck in a box and as he rotated his hand the box fell on his left hand above his thumb causing him severe pain. Reports the pain as 9 out of 10 in intensity, states that it is constant, swollen, and radiates up and down his left arm. He does report previously spraining this left hand in the past several years ago. He also reports tenderness to the snuffbox region. He states that he has been icing the hand but has not taken any medications to help relieve this pain. He reports that his only medical history is history of a herniated disc. Patient is a frequent visitor to the emergency department in the area. ROS All systems reviewed and are negative except as per history of present illness. Medications Home Meds Active Scripts Ibuprofen* (Motrin*) 800 Mg Tab, 800 MG PO Q6H PRN for PAIN AND OR ELEVATED TEMP, #30 TAB Prov:NATALIE VOGEL PA-C 01/18/19 Menthol (HALLS) 7.6 Mg Lozenge, 7.6 MG MM TID for 7 Days, LOZENGE Prov:LUIS ASKEW PA-C 01/15/19 Hwqnfubbdac-P-Ddhmerydsc Hb* (Guaifenesin* DM Syrup) 120 Ml Syrup, 10 ML PO Q4H PRN for COUGH for 7 Days, #120 ML Prov:LUIS ASKEW PA-C 01/15/19 Cyclobenzaprine Hcl* (Cyclobenzaprine Hcl*) 10 Mg Tablet, 10 MG PO TID, #15 TAB Prov:LEA DUNN 01/08/19 Ibuprofen* (Motrin*) 600 Mg Tab, 600 MG PO Q6, #30 TAB Prov:LEA DUNN 01/08/19 Ibuprofen* (Motrin*) 600 Mg Tab, 600 MG PO Q6H PRN for PAIN AND OR ELEVATED TEMP, #30 TAB Prov:KELLY POWELL MD 11/25/18 Metoclopramide* (Reglan*) 10 Mg Tablet, 10 MG PO Q6 PRN for NAUSEA AND/OR VOMITING, #20 TAB Prov:EDWINILAASHA STRICKLAND F 09/26/18 Ibuprofen* (Motrin*) 800 Mg Tab, 800 MG PO Q6H PRN for PAIN AND OR ELEVATED TEMP, #30 TAB Prov:PASILABANASHA F 09/26/18 Diphenhydramine Hcl* (Benadryl*) 25 Mg Cap, 25 MG PO Q6 PRN for ITCHING/RASH, #30 TAB Prov:EDWINILABANASAH F 09/26/18 Meclizine Hcl* (Antivert*) 12.5 Mg Tab, 12.5 MG PO Q6H PRN for DIZZINESS, #20 TAB Prov:EDWINILABANASHA F 09/26/18 Ibuprofen* (Motrin*) 600 Mg Tab, 600 MG PO Q6, #30 TAB Prov:LATRICIA MCCLAIN PA-C 09/15/18 Ondansetron Hcl* (Zofran*) 8 Mg Tab, 8 MG PO Q6H PRN for NAUSEA AND OR VOMITING, #20 TAB Prov:NAYA SHOEMAKER MD 07/11/18 Dicyclomine HCl (Dicyclomine HCl) 10 Mg Capsule, 10 MG PO TID PRN for ABDOMINAL CRAMPING, #20 CAP Prov:NAYA SHOEMAKER MD 07/11/18 Reported Medications Hydrocodone/Acetaminophen ([place] 10-325 Tablet) 1 Each Tablet, 1 EACH PO Q6 PRN for SEVERE PAIN LEVEL 7-10, TAB 03/03/18 Ibuprofen* (Ibuprofen*) 600 Mg Tablet, 600 MG PO Q6H PRN for PAIN AND/OR INFLAMMATION, TAB 03/03/18 Allergies Allergies: Coded Allergies: No Known Drug Allergy (Verified Allergy, Mild, 09/15/18) PMhx/Soc History of Surgery: No Anesthesia Reaction: No Hx Neurological Disorder: Yes (Herniated Disc) Hx Respiratory Disorders: No Hx Cardiac Disorders: No Hx Psychiatric Problems: No Hx Miscellaneous Medical Probl: No Hx Alcohol Use: No (pt denies) Hx Substance Use: No (pt denies) Hx Tobacco Use: Yes Smoking Status: Current every day smoker FmHx Family History: No diabetes Physical Exam Vitals Vital Signs Date Temp Pulse Resp B/P (MAP) Pulse Ox O2 O2 Flow FiO2 Time Delivery Rate 01/18/19 96.8 79 18 131/79 99 05:59 (96) Physical Exam Const: No acute distress Head: Atraumatic Eyes: Normal Conjunctiva ENT: Normal External Ears, Nose and Mouth. Neck: Full range of motion. No meningismus. Resp: Clear to auscultation bilaterally Cardio: Regular rate and rhythm, no murmurs Abd: Soft, non tender, non distended. Normal bowel sounds Skin: No petechiae or rashes Back: No midline or flank tenderness Ext: Left hand/wrist: Slight edema of the left hand and wrist. Tenderness to the snuffbox region. Tenderness above the thumb and wrist. No obvious deformities, open fractures, bruising or bleeding Neur: Awake and alert Psych: Normal Mood and Affect Results 24 hrs Current Medications Medications Dose Sig/Nicole Start Time Status Last (Trade) Ordered Route PRN Stop Time Admin Dose Reason Admin 1 tab ONCE ONCE 01/18/19 DC 01/18/19 Acetaminophen PO 07:00 01/18/19 06:36 / 07:01 Hydrocodone Bitart ([place] (5/325)) Procedures/MDM ED COURSE: The patient was stable throughout ED course. I kept the patient informed of laboratory and diagnostic imaging results throughout the ED course. DIAGNOSTIC IMAGING: Read by radiologist. PROCEDURE: Left hand x-ray CLINICAL INDICATION: work injury, object fell on hand/wrist TECHNIQUE: AP, lateral and oblique views of the hand were obtained. COMPARISON: None FINDINGS: There is normal mineralization. No acute fracture or dislocation is seen. There are no significant degenerative changes. There is no significant soft tissue swelling. IMPRESSION: No definite abnormalities are identified. RPTAT:AAJJ Odell Vuong Physician Date Time Electronically viewed and signed by Odlel Vuong Physician on 01/18/2019 07:18 PROCEDURE: XR Left Wrist. CLINICAL INDICATION: work injury, object fell on hand/wrist TECHNIQUE: AP, lateral and oblique views of the wrist were performed. COMPARISON: No prior studies are available for comparison. FINDINGS: No acute fracture dislocation is identified. The bones appear well mineralized. The joint spaces are well maintained. The soft tissues are normal. IMPRESSION: No definite abnormalities are identified. RPTAT:AAJJ Physician Macrina Date Time Electronically viewed and signed by Physician Macrina on 01/18/2019 07:19 PROCEDURES: ED Thumb spica splint Assessment: Neurovascularly intact post splint placement with good fit. MEDICATIONS GIVEN: Motrin Patient tolerated medication well with no adverse reactions. Patient reported improvement in pain. MEDICAL DECISION MAKING: Patient is a 89-year-old male complaining of a injury at work at 230 this a.m in which his finger got stuck in a box and box fell on his left hand and wrist. He complains about severe 9 out of 10 intensity constant sharp pain to the left hand. He has not taken any medication to help alleviate the pain. He does report previously spraining this hand in the past. X-ray imaging was done to rule out any fractures. X-rays were unremarkable of the hand and wrist. Patient was placed in a thumb spica splint and told to follow-up with Ortho and primary care in the next 1 to 2 days. At this time I have low suspicion for a fracture, osteomyelitis, septic joint, gout. vital signs were reviewed. Patient is afebrile. Patient was not hypoxic. Patient was hemodynamically stable. Patient was told to follow up with primary care for further care and management. PRESCRIPTION: Motrin DISCHARGE: At this time, patient is stable for discharge and outpatient management. I have instructed the patient to follow-up with his/her primary care physician in 1-2 days. I have discussed with the patient the possibility of needing to see a specialist for further workup and imaging studies if symptoms persist. I have instructed the patient to promptly return to the ER for any new or worsening symptoms including increased pain, fever, nausea, vomiting, weakness or LOC. The patient expressed understanding of and agreement with this plan. All questions were answered. Home care instructions were provided. Disclaimer: Inadvertent spelling and grammatical errors are likely due to EHR/dictation software use and do not reflect on the overall quality of patient care. Also, please note that the electronic time recorded on this note does not necessarily reflect the actual time of the patient encounter. Departure Diagnosis: Primary Impression: Injury of hand Encounter type: initial encounter Laterality: left Qualified Codes: S69.92XA - Unspecified injury of left wrist, hand and finger(s), initial encounter Additional Impressions: Wrist pain Laterality: left Qualified Codes: M25.532 - Pain in left wrist Hand pain Laterality: left Qualified Codes: M79.642 - Pain in left hand Condition: Fair Patient Instructions: Sprain Hand Referrals: [facility] YOU HAVE RECEIVED A MEDICAL SCREENING EXAM AND THE RESULTS INDICATE THAT YOU DO NOT HAVE A CONDITION THAT REQUIRES URGENT TREATMENT IN THE EMERGENCY DEPARTMENT. FURTHER EVALUATION AND TREATMENT OF YOUR CONDITION CAN WAIT UNTIL YOU ARE SEEN IN YOUR DOCTORS OFFICE WITHIN THE NEXT 1-2 DAYS. IT IS YOUR RESPONSIBILITY TO MAKE AN APPOINTMENT FOR FOLOW-UP CARE. IF YOU HAVE A PRIMARY DOCTOR --you should call your primary doctor and schedule an appointment IF YOU DO NOT HAVE A PRIMARY DOCTOR YOU CAN CALL OUR PHYSICIAN REFERRAL HOTLINE AT IF YOU CAN NOT AFFORD TO SEE A PHYSICIAN YOU CAN CHOSE FROM THE FOLLOWING [facility] [address] [facility]. [facility] [address] [facility] [address] [facility] [facility] [address] [facility] [address] [facility]. [facility]. [address] [facility]. [facility] YOU HAVE RECEIVED A MEDICAL SCREENING EXAM AND THE RESULTS INDICATE THAT YOU DO NOT HAVE A CONDITION THAT REQUIRES URGENT TREATMENT IN THE EMERGENCY DEPARTMENT. FURTHER EVALUATION AND TREATMENT OF YOUR CONDITION CAN WAIT UNTIL YOU ARE SEEN IN YOUR DOCTORS OFFICE WITHIN THE NEXT 1-2 DAYS. IT IS YOUR RESPONSIBILITY TO MAKE AN APPOINTMENT FOR FOLOW-UP CARE. IF YOU HAVE A PRIMARY DOCTOR --you should call your primary doctor and schedule and appointment IF YOU DO NOT HAVE A PRIMARY DOCTOR YOU CAN CALL OUR PHYSICIAN REFERRAL HOTLINE AT . IF YOU CAN NOT AFFORD TO SEE A PHYSICIAN YOU CAN CHOSE FROM THE FOLLOWING [facility] INSTITUTIONS: [facility] [address] [place] [address] [facility] [address] [place] [address] [facility] [address] [place] [address] [facility] 7 a.m.- 11 p.m. Every Day of the Week NO APPOINTMENT OR AUTHORIZATION NEEDED Additional Instructions: Follow-up with Ortho in the next 1 to 2 days for further evaluation and man agement. Call your primary care doctor TOMORROW for an appointment during the next 1-2 days.See the doctor sooner or return here if your condition worsens before your appointment time. NATALIE VOGEL PA-C Jan 18, 2019 07:42
== END 2019-01-18 08:10 | disposition home or self-care (01) ==
LOC: FTE 05:54
DX: S69.92XA Unspecified injury of left wrist, hand and finger(s), initial encounter (principal); W20.8XXA Other cause of strike by thrown, projected or falling object, initial encounter; Y92.89 Other specified places as the place of occurrence of the external cause
CPT/HCPCS: 29125; 73110; 73130; Z7502; Z7610

== ENCOUNTER 2019-02-04 09:56 | Emergency (ER) | payer OTHER ==
[~2019-02-04] VITALS: Ht 172.7 cm; Wt 81.8 kg
[2019-02-04 10:01] VITALS: BP 139/79; PULSE 97; RESP 24; Ht 172.7 cm; Wt 81.8 kg
[2019-02-04] MEDS ORDERED: ACETAMINOPHEN 500 MG TAB PO STA (10:31)
[2019-02-04] MEDS ORDERED: ONDA4TAB14 PO (11:32)
[2019-02-04] MEDS ORDERED: ACET500C5 PO (11:32)
[2019-02-04] MEDS ORDERED: AMOX1TAB10 PO (11:33)
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
== END 2019-02-04 11:51 | disposition home or self-care (01) ==
LOC: FTE 09:56
DX: S09.90XA Unspecified injury of head, initial encounter (principal); S09.93XA Unspecified injury of face, initial encounter; R51 Headache; R40.2362 Coma scale, best motor response, obeys commands, at arrival to emergency department; Y04.8XXA Assault by other bodily force, initial encounter
CPT/HCPCS: 70450; 70486; Z7502; Z7610

== ENCOUNTER 2019-02-16 03:57 | Emergency (ER) | payer OTHER ==
[~2019-02-16] VITALS: Ht 170.2 cm; Wt 76.9 kg
[~2019-02-16 03:57] MED LIST changes: +ACET500C5 PO; +AMOX1TAB10 PO; +HYDR-4011 PO; +ONDA4TAB14 PO
[2019-02-16 04:11] VITALS: BP 120/59; PULSE 86; RESP 19; Ht 170.2 cm; Wt 76.9 kg
[2019-02-16] MEDS ORDERED: IBUPROFEN 600 MG TAB PO ONE (04:30)
[2019-02-16] MEDS ORDERED: ACETAMINOPHEN 500 MG TAB PO STA (04:53)
--- NOTE | 2019-02-16 16:13 | ERD ---
ER Documentation Chief Complaint Chief Complaint LEFT HAND/WRIST INJ X2HRS; HIT ON METAL FRIDGE HPI 28-year-old male with a history of recent L shoulder sprain for which she is wearing an arm sling presents with complaint of left hand and wrist pain after hitting his wrist against a metal fridge at work. Patient states the pain is made worse with palpation. Patient denies any impaired range of motion. Patient denies any numbness or weakness. States he has been taking ibuprofen for pain. Last dose was 2 hours ago. ROS All systems reviewed and are negative except as per history of present illness. Medications Home Meds Active Scripts Ibuprofen* (Motrin*) 600 Mg Tab, 600 MG PO Q6, #30 TAB Prov:LEA DUNN 02/16/19 Amoxicillin/Potassium Clav (Amox-Clav 875-125 mg Tablet) 875-125 mg Tab, 1 TAB PO BID for 7 Days, #14 TAB Prov:WEI LEMOS PA-C 02/04/19 Acetaminophen* (Tylophen*) 500 Mg Capsule, 1 CAP PO Q6H PRN for PAIN AND OR ELEVATED TEMP, #20 CAP Prov:WEI LEMOS PA-C 02/04/19 Ondansetron (Ondansetron Odt) 4 Mg Tab.rapdis, 4 MG PO Q6H PRN for NAUSEA AND/OR VOMITING, #10 TAB Prov:WEI LEMOS PA-C 02/04/19 Ibuprofen* (Motrin*) 800 Mg Tab, 800 MG PO Q6H PRN for PAIN AND OR ELEVATED TEMP, #30 TAB Prov:NATALIE VOGEL PA-C 01/18/19 Menthol (HALLS) 7.6 Mg Lozenge, 7.6 MG MM TID for 7 Days, LOZENGE Prov:LUIS ASKEW PA-C 01/15/19 Ophhjyowifi-O-Uotjhjkvlm Hb* (Guaifenesin* DM Syrup) 120 Ml Syrup, 10 ML PO Q4H PRN for COUGH for 7 Days, #120 ML Prov:LUIS ASKEW PA-C 01/15/19 Cyclobenzaprine Hcl* (Cyclobenzaprine Hcl*) 10 Mg Tablet, 10 MG PO TID, #15 TAB Prov:LEA DUNN 01/08/19 Ibuprofen* (Motrin*) 600 Mg Tab, 600 MG PO Q6, #30 TAB Prov:LEA DUNN 01/08/19 Ibuprofen* (Motrin*) 600 Mg Tab, 600 MG PO Q6H PRN for PAIN AND OR ELEVATED TEMP, #30 TAB Prov:KELLY POWELL MD 11/25/18 Metoclopramide* (Reglan*) 10 Mg Tablet, 10 MG PO Q6 PRN for NAUSEA AND/OR VOMITING, #20 TAB Prov:PASILABAN,TRINHAR F 09/26/18 Ibuprofen* (Motrin*) 800 Mg Tab, 800 MG PO Q6H PRN for PAIN AND OR ELEVATED TEMP, #30 TAB Prov:PASILABAN,TRINHAR F 09/26/18 Diphenhydramine Hcl* (Benadryl*) 25 Mg Cap, 25 MG PO Q6 PRN for ITCHING/RASH, #30 TAB Prov:PASILABAN,TRINHAR F 09/26/18 Meclizine Hcl* (Antivert*) 12.5 Mg Tab, 12.5 MG PO Q6H PRN for DIZZINESS, #20 TAB Prov:PASILABAN,TRINHAR F 09/26/18 Ibuprofen* (Motrin*) 600 Mg Tab, 600 MG PO Q6, #30 TAB Prov:LATRICIA MCCLAIN PA-C 09/15/18 Ondansetron Hcl* (Zofran*) 8 Mg Tab, 8 MG PO Q6H PRN for NAUSEA AND OR VOMITING, #20 TAB Prov:NAYA SHOEMAKER MD 07/11/18 Dicyclomine HCl (Dicyclomine HCl) 10 Mg Capsule, 10 MG PO TID PRN for ABDOMINAL CRAMPING, #20 CAP Prov:NAYA SHOEMAKER MD 07/11/18 Reported Medications Hydrocodone/Acetaminophen (Tripp 10-325 Tablet) 1 Each Tablet, 1 EACH PO Q6 PRN for SEVERE PAIN LEVEL 7-10, TAB 03/03/18 Ibuprofen* (Ibuprofen*) 600 Mg Tablet, 600 MG PO Q6H PRN for PAIN AND/OR INFLAMMATION, TAB 03/03/18 Allergies Allergies: Coded Allergies: No Known Drug Allergy (Verified Allergy, Mild, 09/15/18) PMhx/Soc Medical and Surgical Hx: pt denies Surgical Hx History of Surgery: No Anesthesia Reaction: No Hx Neurological Disorder: Yes (Herniated Disc) Hx Respiratory Disorders: No Hx Cardiac Disorders: No Hx Psychiatric Problems: No Hx Miscellaneous Medical Probl: No Hx Alcohol Use: No (pt denies) Hx Substance Use: No (pt denies) Hx Tobacco Use: Yes Smoking Status: Former smoker FmHx Family History: No diabetes, No coronary disease, No other Physical Exam Vitals Vital Signs Date Temp Pulse Resp B/P (MAP) Pulse Ox O2 O2 Flow FiO2 Time Delivery Rate 02/16/19 97.5 86 19 120/59 99 04:11 (79) Physical Exam Const: No acute distress Head: Atraumatic Eyes: Normal Conjunctiva ENT: Normal External Ears, Nose and Mouth. Neck: Full range of motion. No meningismus. Resp: Clear to auscultation bilaterally Cardio: Regular rate and rhythm, no murmurs Abd: Soft, non tender, non distended. Normal bowel sounds Skin: No petechiae or rashes Back: No midline or flank tenderness Ext: No cyanosis, or edema Neur: Awake and alert Psych: Normal Mood and Affect Upper Extremity - bilateral: Skin: No laceration, or evidence of external trauma Compartments: Soft Motor: Full active range of motion shoulder/elbow/wrist/hand Sensation: Intact shoulder/pinky/middle finger/thumb web space Bones: Nontender humerus/elbow/forearm. Tenderness palpation of the dorsal aspect of left wrist as well as over the metacarpal area of the left hand. There is no bony deformity noted. Snuffbox: Nontender Joints: No effusion Pulses/Perfusion: 2+ radial, Capillary refill < 2 seconds Results 24 hrs Current Medications Medications Dose Sig/Nicole Start Time Status Last (Trade) Ordered Route PRN Stop Time Admin Dose Reason Admin Ibuprofen 600 mg ONCE ONCE 02/16/19 DC (Motrin) PO 04:30 02/16/19 04:35 1,000 mg ONCE STAT 02/16/19 DC 02/16/19 Acetaminophen PO 04:53 04:59 (Tylenol 02/16/19 04:54 Tab) Procedures/MDM MDM: X-rays were taking of the elbow, wrist, forearm, and hand. All results within normal limits. Patient placed in a Velcro splint and advised to follow- up with Ortho. Patient also advised to return in 2 weeks for repeat x-rays to rule out hairline fracture. Patient had no snuffbox tenderness on exam so I do not think that thumb spica splint is necessary at this time. I have low suspicion for neurovascular compromise, compartment syndrome, fracture, osteomyelitis, septic joint, DVT, or other emergent condition. At this time, patient is stable for discharge and outpatient management. I have instructed the patient to follow-up with his/her primary care physician in 1-2 days. I have discussed with the patient the possibility of needing to see a specialist for further workup and imaging studies if symptoms persist. I have instructed the patient to promptly return to the ER for any new or worsening symptoms including but not limited to increased pain, fever, nausea, vomiting, weakness or LOC. The patient and/or family expressed understanding of and agreement with this plan. All questions were answered. Home care instructions were provided. DISCLAIMER: Inadvertent spelling and grammatical errors are likely due to EHR/dictation software use and do not reflect on the overall quality of patient care. Also, please note that the electronic time recorded on this note does not necessarily reflect the actual time of the patient encounter. Departure Diagnosis: Primary Impression: Pain of hand Additional Impression: Injury of hand Condition: Stable Patient Instructions: Sprain Hand Referrals: JOSEPH AARON MD Additional Instructions: Please follow-up with orthopedist within 24 hours. I provided you with contact info for Dr. Aaron who is an orthopedist in your area. Please return to ER before then if worsening symptoms. LEA DUNN Feb 16, 2019 16:13
== END 2019-02-16 05:50 | disposition home or self-care (01) ==
LOC: FTE 03:57
DX: S69.92XA Unspecified injury of left wrist, hand and finger(s), initial encounter (principal); W22.8XXA Striking against or struck by other objects, initial encounter; Y92.89 Other specified places as the place of occurrence of the external cause; Z87.891 Personal history of nicotine dependence
CPT/HCPCS: 29125; 73080; 73090; 73110; 73130; Z7502; Z7610

== ENCOUNTER 2019-02-24 23:11 | Emergency (ER) | payer OTHER ==
[~2019-02-24] VITALS: Ht 170.2 cm; Wt 77.7 kg
[2019-02-24 23:28] VITALS: Ht 170.2 cm; Wt 77.7 kg
[2019-02-25] MEDS ORDERED: KETOROLAC 30 MG INJ IM STA (02:14)
[2019-02-25] MEDS ORDERED: DEXAMETHASONE 10 MG/ML 1 ML INJ IM ONE (02:30)
[2019-02-25 03:16] VITALS: BP 120/70; PULSE 76; RESP 18
--- NOTE | 2019-02-26 05:48 | ERD ---
ER Documentation Chief Complaint Chief Complaint pT REPORTS WORSENING L SHOULDER PAIN AFTER A SPRAIN HPI 28-year-old male presenting to the emergency department complaining of 10/10 severity, constant, worse with movement, left shoulder pain for several days. He denies any recent falls or trauma or other symptoms at this time. ROS All systems reviewed and are negative except as per history of present illness. Medications Home Meds Active Scripts Ibuprofen* (Motrin*) 600 Mg Tab, 600 MG PO Q6, #30 TAB Prov:LEA GARCIA PA-C 02/25/19 Ibuprofen* (Motrin*) 600 Mg Tab, 600 MG PO Q6, #30 TAB Prov:LEA DUNN 02/16/19 Amoxicillin/Potassium Clav (Amox-Clav 875-125 mg Tablet) 875-125 mg Tab, 1 TAB PO BID for 7 Days, #14 TAB Prov:WEI LEMOS PA-C 02/04/19 Acetaminophen* (Tylophen*) 500 Mg Capsule, 1 CAP PO Q6H PRN for PAIN AND OR ELEVATED TEMP, #20 CAP Prov:WEI LEMOS PA-C 02/04/19 Ondansetron (Ondansetron Odt) 4 Mg Tab.rapdis, 4 MG PO Q6H PRN for NAUSEA AND/OR VOMITING, #10 TAB Prov:WEI LEMOS PA-C 02/04/19 Ibuprofen* (Motrin*) 800 Mg Tab, 800 MG PO Q6H PRN for PAIN AND OR ELEVATED TEMP, #30 TAB Prov:NATALIE VOGEL PA-C 01/18/19 Menthol (HALLS) 7.6 Mg Lozenge, 7.6 MG MM TID for 7 Days, LOZENGE Prov:LUIS ASKEW PA-C 01/15/19 Pjiemrwsbrl-T-Lfusygsftj Hb* (Guaifenesin* DM Syrup) 120 Ml Syrup, 10 ML PO Q4H PRN for COUGH for 7 Days, #120 ML Prov:LUIS ASKEW PA-C 01/15/19 Cyclobenzaprine Hcl* (Cyclobenzaprine Hcl*) 10 Mg Tablet, 10 MG PO TID, #15 TAB Prov:LEA DUNN 01/08/19 Ibuprofen* (Motrin*) 600 Mg Tab, 600 MG PO Q6, #30 TAB Prov:LEA DUNN 01/08/19 Ibuprofen* (Motrin*) 600 Mg Tab, 600 MG PO Q6H PRN for PAIN AND OR ELEVATED TEMP, #30 TAB Prov:KELLY POWELL MD 11/25/18 Metoclopramide* (Reglan*) 10 Mg Tablet, 10 MG PO Q6 PRN for NAUSEA AND/OR VOMITING, #20 TAB Prov:PASILABANTRINHAR F 09/26/18 Ibuprofen* (Motrin*) 800 Mg Tab, 800 MG PO Q6H PRN for PAIN AND OR ELEVATED TEMP, #30 TAB Prov:PASILABAN,TRINHAR F 09/26/18 Diphenhydramine Hcl* (Benadryl*) 25 Mg Cap, 25 MG PO Q6 PRN for ITCHING/RASH, #30 TAB Prov:PASILABAN,TRINHAR F 09/26/18 Meclizine Hcl* (Antivert*) 12.5 Mg Tab, 12.5 MG PO Q6H PRN for DIZZINESS, #20 TAB Prov:PASILABANTRINHAR F 09/26/18 Ibuprofen* (Motrin*) 600 Mg Tab, 600 MG PO Q6, #30 TAB Prov:LATRICIA MCCLAIN PA-C 09/15/18 Ondansetron Hcl* (Zofran*) 8 Mg Tab, 8 MG PO Q6H PRN for NAUSEA AND OR VOMITING, #20 TAB Prov:NAYA SHOEMAKER MD 07/11/18 Dicyclomine HCl (Dicyclomine HCl) 10 Mg Capsule, 10 MG PO TID PRN for ABDOMINAL CRAMPING, #20 CAP Prov:NAYA SHOEMAKER MD 07/11/18 Reported Medications Hydrocodone/Acetaminophen (Vest 10-325 Tablet) 1 Each Tablet, 1 EACH PO Q6 PRN for SEVERE PAIN LEVEL 7-10, TAB 03/03/18 Ibuprofen* (Ibuprofen*) 600 Mg Tablet, 600 MG PO Q6H PRN for PAIN AND/OR INFLAMMATION, TAB 03/03/18 Allergies Allergies: Coded Allergies: No Known Drug Allergy (Verified Allergy, Mild, 09/15/18) PMhx/Soc History of Surgery: No Anesthesia Reaction: No Hx Neurological Disorder: Yes (Herniated Disc) Hx Respiratory Disorders: No Hx Cardiac Disorders: No Hx Psychiatric Problems: No Hx Miscellaneous Medical Probl: No Hx Alcohol Use: No (pt denies) Hx Substance Use: No (pt denies) Hx Tobacco Use: Yes Smoking Status: Current every day smoker FmHx Family History: No diabetes Physical Exam Vitals Vital Signs Date Temp Pulse Resp B/P (MAP) Pulse Ox O2 O2 Flow FiO2 Time Delivery Rate 02/25/19 98.1 76 18 120/70 99 Room Air 03:16 (87) 02/24/19 98.3 77 20 123/74 99 23:28 (90) Physical Exam Const: No acute distress Head: Atraumatic Eyes: Normal Conjunctiva ENT: Normal External Ears, Nose and Mouth. Neck: Full range of motion. No meningismus. Resp: No respiratory distress. Skin: No petechiae or rashes Back: No midline or flank tenderness Ext: Tenderness palpation over the left anterior shoulder with slightly limited range of motion secondary to pain. Patient is neurovascularly intact to the left upper extremity. Neur: Awake and alert Psych: Normal Mood and Affect Results 24 hrs Current Medications Medications Dose Sig/Nicole Start Time Status Last (Trade) Ordered Route PRN Stop Time Admin Dose Reason Admin Ketorolac 30 mg ONCE STAT 02/25/19 DC 02/25/19 Tromethamine IM 02:14 02/25/19 02:31 (Toradol) 02:16 10 mg ONCE ONCE 02/25/19 DC 02/25/19 Dexamethasone IM 02:30 02/25/19 02:31 (Decadron) 02:31 Procedures/MDM 28-year-old male presents to the emergency department with signs and symptoms most consistent with strain of the left shoulder. X-rays today were negative for acute abnormalities and the full report interpreted by the radiologist may be viewed above. Patient advised to follow-up with orthopedic physician as an outpatient and return here immediately for any new or worsening or concerning symptoms. I shared my medical decision making with the patient and he understands and agrees with the plan. Departure Diagnosis: Primary Impression: Left shoulder pain Chronicity: acute Qualified Codes: M25.512 - Pain in left shoulder Condition: Fair Patient Instructions: Shoulder Shrug Exercise, Shoulder Sprain Referrals: [facility] YOU HAVE RECEIVED A MEDICAL SCREENING EXAM AND THE RESULTS INDICATE THAT YOU DO NOT HAVE A CONDITION THAT REQUIRES URGENT TREATMENT IN THE EMERGENCY DEPARTMENT. FURTHER EVALUATION AND TREATMENT OF YOUR CONDITION CAN WAIT UNTIL YOU ARE SEEN IN YOUR DOCTORS OFFICE WITHIN THE NEXT 1-2 DAYS. IT IS YOUR RESPONSIBILITY TO MAKE AN APPOINTMENT FOR FOLOW-UP CARE. IF YOU HAVE A PRIMARY DOCTOR --you should call your primary doctor and schedule an appointment IF YOU DO NOT HAVE A PRIMARY DOCTOR YOU CAN CALL OUR PHYSICIAN REFERRAL HOTLINE AT IF YOU CAN NOT AFFORD TO SEE A PHYSICIAN YOU CAN CHOSE FROM THE FOLLOWING [facility] [address] [facility] [address] [employer] [facility] [address] [facility] [address] [facility] [address] [facility]. [facility]. [address] Additional Instructions: Call your primary care doctor TOMORROW for an appointment during the next 1-2 days.See the doctor sooner or return here if your condition worsens before your appointment time. LEA GARCIA PA-C Feb 26, 2019 05:48
== END 2019-02-25 03:16 | disposition home or self-care (01) ==
LOC: FTE 23:11
DX: M25.512 Pain in left shoulder (principal); F17.210 Nicotine dependence, cigarettes, uncomplicated
CPT/HCPCS: 73030; 96372; J1100; J1885; Z7502

== ENCOUNTER 2019-03-03 17:46 | Emergency (ER) | payer OTHER ==
[~2019-03-03] VITALS: Ht 170.2 cm; Wt 75.8 kg
[2019-03-03 17:53] VITALS: Ht 170.2 cm; Wt 75.8 kg
[2019-03-03 22:22] VITALS: BP 127/67; PULSE 89; RESP 19
== END 2019-03-03 22:24 | disposition home or self-care (01) ==
LOC: EDUNIT# 17:46 → FTE 17:46
DX: S02.2XXA Fracture of nasal bones, initial encounter for closed fracture (principal); F17.210 Nicotine dependence, cigarettes, uncomplicated; Y04.2XXA Assault by strike against or bumped into by another person, initial encounter
CPT/HCPCS: 70486; 73130; J1885; 96372

== ENCOUNTER 2019-05-05 07:43 | Emergency (ER) | payer OTHER ==
[~2019-05-05] VITALS: Ht 165.1 cm; Wt 75.0 kg
[2019-05-05 07:46] VITALS: BP 116/60; PULSE 89; RESP 18; Ht 165.1 cm; Wt 75.0 kg
[2019-05-05] MEDS ORDERED: HYDROCODONE/APAP (5/325) TAB PO ONE (08:00)
[2019-05-05] MEDS ORDERED: ONDANSETRON (ODT) 4 MG TAB ODT STA (08:00)
== END 2019-05-05 09:22 | disposition home or self-care (01) ==
LOC: FTE 07:43
DX: M25.521 Pain in right elbow (principal); F17.210 Nicotine dependence, cigarettes, uncomplicated
CPT/HCPCS: 73080; Z7610